=== PATIENT | female | born 1975 | race African-American/Black ===

== ENCOUNTER 2020-01-26 20:19 | Outpatient (CLI) | payer OTHER, SELFPAY ==
--- NOTE | ~2020-01-26 | MR_ITS ---
EXAMINATION: MR knee RT wo con DATE: 01/26/2020 21:06 INDICATION: Right knee pain. TECHNIQUE: Magnetic resonance imaging (MRI) of the right knee was performed without intravenous contr ast. Sequences included axial PD-weighted FS FSE, coronal PD-weighted FSE and PD-weighted FS FSE, sag ittal PD-weighted FSE, and sagittal T2-weighted FS FSE. COMPARISON: Right knee radiograph 01/19/2020 FINDINGS: Medial compartment: There is a complex tear of medial meniscus at the junction of the body and posterior horn. There is c artilage surface regularity of tibial condyle and femoral condyle. There is mild subchondral edema-li ke marrow signal intensity of femoral condyle and tibial condyle medially. There are tiny osteophytes . Lateral compartment: There is an undersurface horizontal tear of body and posterior horn of lateral meniscus. There is sha llow partial-thickness cartilage loss of femoral condyle posteriorly with mild subchondral edema-like signal intensity. Trochlear cartilage is normal. There are tiny osteophytes. Patellofemoral compartment: There is deep partial thickness cartilage loss of patellar medial and lateral facets with mild subcho ndral edema-like marrow signal intensity at the medial facet. There is deep partial thickness cartila ge loss of central and medial trochlea with mild subchondral edema-like marrow signal intensity. Ligaments and tendons: The anterior and posterior cruciate ligaments are normal. There is edema around the medial collateral ligament, consistent with mild sprain (grade 1). Lateral collateral ligament complex is normal. Ther e is mild patellar tendinopathy. Fluid: There is a small knee joint effusion. There is a small Montesinos's cyst. There is edema in Hoffa's fat pa d superolaterally, which may be seen with impingement. IMPRESSION: 1. Moderate chondrosis of patellofemoral compartment and mild chondrosis of medial and lateral compar tments. 2. Tears of medial and lateral menisci. 3. Small knee joint effusion. 4. Small Montesinos's cyst. 5. Grade 1 sprain of medial collateral ligament. Reviewed, dictated and finalized at location A. IMPRESSION: 1. Moderate chondrosis of patellofemoral compartment and mild chondrosis of med ial and lateral compartments. 2. Tears of medial and lateral menisci. 3. Small knee joint effusion. 4. Small Montesinos's cyst. 5. Grade 1 sprain of medial collateral ligament.
== END 2020-01-26 20:20 | disposition home or self-care (01) ==
PROVIDERS: PCP Family Medicine Adolescent Medicine; Visit Provider Orthopaedic Surgery
DX: M25.561 Pain in right knee (principal); M22.2X1 Patellofemoral disorders, right knee; S83.241A Other tear of medial meniscus, current injury, right knee, initial encounter; S83.281A Other tear of lateral meniscus, current injury, right knee, initial encounter; M25.461 Effusion, right knee; M71.21 Synovial cyst of popliteal space [Baker], right knee; S83.411A Sprain of medial collateral ligament of right knee, initial encounter
CPT/HCPCS: 73721

== ENCOUNTER 2020-02-28 09:05 | Outpatient (CLI) | payer OTHER, SELFPAY ==
--- NOTE | 2020-02-28 09:07 | ECG_ITS ---
Measurements Intervals [place] Rate: 54 P: 28 NM: 178 QRS: -5 QRSD: 92 T: 4 QT: 452 QTc: 429 Interpretive Statements SINUS BRADYCARDIA DELAYED PRECORDIAL R/S TRANSITION BORDERLINE T WAVE ABNORMALITY- INFERIOR LEADS BORDERLINE ECG Electronically Signed On 02-28-2020 9:22:11 CDT by Jesus Calixto D.O.
[2020-02-28 09:37] LABS: Blood Urea Nitrogen 12 mg/dL (7-17); Carbon Dioxide 28 mmol/L (22-30); Chloride 100 mmol/L (98-107); Estimated Glomerular Filt Rate > 60; Glucose 147 mg/dL (65-105); Potassium 4.3 mmol/L (3.4-5.0); Sodium 136 mmol/L (137-145)
== END 2020-02-28 09:06 | disposition home or self-care (01) ==
LOC: ANHSURGERY 09:07
PROVIDERS: Anesthesiology; PCP Family Medicine Adolescent Medicine; Visit Provider Orthopaedic Surgery
DX: E11.9 Type 2 diabetes mellitus without complications (principal)
CPT/HCPCS: 36415; 80048; 93005

== ENCOUNTER 2020-03-07 01:08 | Outpatient (CLI) | payer OTHER, SELFPAY ==
[2020-03-07 18:39] LABS: SARS-CoV-2 RNA PCR Negative
== END 2020-03-07 01:09 | disposition home or self-care (01) ==
LOC: ANHCOVIDDT 01:08
PROVIDERS: PCP Family Medicine Adolescent Medicine; Visit Provider Orthopaedic Surgery
DX: Z01.812 Encounter for preprocedural laboratory examination (principal); Z11.59 Encounter for screening for other viral diseases
CPT/HCPCS: 87635; C9803; U0003

== ENCOUNTER 2020-03-09 02:09 | Day surgery (SDC) | payer OTHER, SELFPAY ==
[2020-02-23 15:14] VITALS: BMI 34.2
--- NOTE | 2020-02-27 12:55 | PM.IMHP ---
H&P: HPI History of Present Illness Chief complaint: Right Knee Medial Meniscus Tear, Right Knee La Men Narrative: Trish Carter is a 44 year old female with right Knee Pain. Pt. is having Rt knee pain with swelling. Pt. stated the knee has been causing her pain for the past 9months, no injury to the knee. Involved knee: right Onset: gradual Location of pain: medial (posterior aspect of the knee cap ) Pain scale (0-10): 8 Character: stabbing, radiating, throbbing, dull ache and shooting Timing of pain: intermittent Exacerbated by: weight bearing, stairs, prolonged activity and other (pain more increased at HS ) Relieved by: brace, elevation, ice, rest, NSAIDs (naproxen ) and other (diclofenac gel) Associated symptoms: Reports swelling, popping and stiffness; Denies fever(s), erythema or warmth History of occupational/recreational activity with repetitive motion: No History of prior knee injury: No Review of Systems Review of Systems: All systems reviewed & are unremarkable except as noted in HPI and below Constitutional: Constitutional: Denies headache(s) and Denies weakness Eyes: Eyes: Denies blurry vision, Denies change in vision and Denies loss of vision ENT: Denies dizziness, Denies dry mouth, Denies headache(s) and Denies nasal congestion Cardiovascular: Cardiovascular: Denies chest pain, Denies syncope, Denies leg edema and Denies dyspnea on exertion Respiratory: Respiratory: Denies cough and Denies dyspnea on exertion Gastrointestinal: Gastrointestinal: Denies abdominal pain, Denies constipation and Denies diarrhea Genitourinary: Genitourinary: Denies urinary frequency Musculoskeletal: Musculoskeletal: Reports as per HPI and Denies numbness Integumentary/Breasts: Skin/Breast: Reports system reviewed and no additional complaints, except as docu Neurologic: Denies dizziness, Denies syncope, Denies headache(s), Denies loss of vision, Denies numbness and Denies weakness Psychiatric: Psychiatric: Reports no additional psychiatric complaints Endocrine: Endocrine: Reports no additional endocrine complaints Hematologic/Lymphatic: Hematologic/Lymphatic: Reports no additional hematologic/lymphatic complaints [facility] Past Medical History Medical History (Updated 02/06/20 @ 16:09 by ELTON Ireland) Arthritis Chondromalacia, right knee Diabetes Lateral meniscus tear Medial meniscus tear Pes anserine bursitis Right knee pain Social History Social History Smoking status: Never smoker Alcohol intake: current Drinks per week: 1 Substance use: never Substance use type: does not use 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[employer] Gender identity (if verbalized by the patient): Female Spiritual care concerns: No Meds Home Medications and Allergies Home Medications Medication Instructions Recorded Confirmed Type diclofenac sodium 2 pump TOPICAL BID #112 gm 01/19/20 02/23/20 Rx meloxicam 15 mg tablet 15 mg PO DAILY 02/06/20 02/23/20 History chlorhexidine gluconate 4 % 1 applic TOPICAL ONCE #237 ml 02/07/20 02/23/20 Rx topical liquid atorvastatin [Lipitor] 20 mg PO DAILY 02/23/20 02/23/20 History canagliflozin [Invokana] 100 mg PO DAILY 02/23/20 02/23/20 History docusate sodium [Colace] 100 mg PO BID 02/23/20 02/23/20 History metformin 1,000 mg PO BID 02/23/20 02/23/20 History omeprazole magnesium [Prilosec OTC] 40 mg PO BID 02/23/20 02/23/20 History sennosides [senna] 8.6 mg PO BID 02/23/20 02/23/20 History Allergies Allergy/AdvReac Type Severity Reaction Status Date / Time No Known Allergies Allergy Unknown Verified 02/23/20 15:14 Exam Narrative: Exam Narrative: Const Reports as per HPI, Denies chills, Denies fatigue, Denies headache(s), Denies night sweats, Denies weakness, Denies weight gain and Denies weight loss Eyes Reports no additional complaints and Denies eye discharge ENT Reports
--- NOTE | 2020-03-08 17:12 | P.PNAN_ITS ---
Mari - Joni Pre Procedure Procedure: Operation Date: 03/09/20 07:30 Proposed Procedures p Right Knee Arthroscopy, Proceed As Indicated - Bharat De Oliveira MD Date/Time: 03/08/20 17:12 Pre Op Diagnosis: Right Knee Medial Meniscus Tear, Right Knee La Men Patient Data Age: 44 Gender: F Height: 5 ft 8 in Weight: 102 kg Allergies Allergy/AdvReac Type Severity Reaction Status Date / Time No Known Allergies Allergy Unknown Verified 02/23/20 15:14 Home Medications Medication Instructions Recorded Confirmed Type diclofenac sodium 2 pump TOPICAL BID #112 gm 01/19/20 02/23/20 Rx meloxicam 15 mg tablet 15 mg PO DAILY 02/06/20 02/23/20 History chlorhexidine gluconate 4 % 1 applic TOPICAL ONCE #237 ml 02/07/20 02/23/20 Rx topical liquid atorvastatin [Lipitor] 20 mg PO DAILY 02/23/20 02/23/20 History canagliflozin [Invokana] 100 mg PO DAILY 02/23/20 02/23/20 History docusate sodium [Colace] 100 mg PO BID 02/23/20 02/23/20 History metformin 1,000 mg PO BID 02/23/20 02/23/20 History omeprazole magnesium [Prilosec OTC] 40 mg PO BID 02/23/20 02/23/20 History sennosides [senna] 8.6 mg PO BID 02/23/20 02/23/20 History Patient hx anesthesia problems: none Family hx anesthesia problems: none PMFSH Past Medical History Medical History (Updated 03/08/20 @ 17:13 by Mitul Morillo CRNA) Arthritis Chondromalacia, right knee Diabetes GERD (gastroesophageal reflux disease) Lateral meniscus tear Medial meniscus tear Pes anserine bursitis Right knee pain Family History Family History Unknown Diabetes mellitus Arthritis Social History Social History Smoking status: Never smoker Alcohol intake: current Drinks per week: 1 Substance use: never Substance use type: does not use 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
[2020-03-09] VITALS (9 sets, daily range): BP systolic 117–155; BP diastolic 72–86; PULSE 51–73; RESP 11–18; TEMP 36.2–36.7; O2SAT 99–100
[2020-03-09] MEDS: CELECOXIB 200 MG CAPSULE PO (06:20)
[2020-03-09] MEDS: LACTATED RINGERS 1,000 ML 30 ML IV CONT (06:30)
[2020-03-09 06:38] LABS: Glucose Point of Care 138 (65-105)
--- NOTE | 2020-03-09 07:02 | P.PNAN_ITS ---
Anes - Initial Pre Proc Eval Procedure: Operation Date: 03/09/20 07:30 Proposed Procedures p Right Knee Arthroscopy, Proceed As Indicated - Bharat De Oliveira MD Date/Time: 03/09/20 07:02 Surgeon: Bharat De Oliveira MD Pre Op Diagnosis: Right Knee Medial Meniscus Tear, Right Knee La Men Patient Data Age: 44 Gender: F Height: 5 ft 8 in Weight: 102 kg Allergies Allergy/AdvReac Type Severity Reaction Status Date / Time No Known Allergies Allergy Unknown Verified 03/09/20 07:01 Home Medications Medication Instructions Recorded Confirmed Type diclofenac sodium 2 pump TOPICAL BID #112 gm 01/19/20 02/23/20 Rx meloxicam 15 mg tablet 15 mg PO DAILY 02/06/20 02/23/20 History chlorhexidine gluconate 4 % 1 applic TOPICAL ONCE #237 ml 02/07/20 02/23/20 Rx topical liquid atorvastatin [Lipitor] 20 mg PO DAILY 02/23/20 02/23/20 History canagliflozin [Invokana] 100 mg PO DAILY 02/23/20 02/23/20 History docusate sodium [Colace] 100 mg PO BID 02/23/20 02/23/20 History metformin 1,000 mg PO BID 02/23/20 02/23/20 History omeprazole magnesium [Prilosec OTC] 40 mg PO BID 02/23/20 02/23/20 History sennosides [senna] 8.6 mg PO BID 02/23/20 02/23/20 History Laboratory Tests 03/09/20 06:36 POC Capillary Glucose 138 mg/dl H mg/dl (65-105) Patient hx anesthesia problems: none Family hx anesthesia problems: none PMFSH Past Medical History Medical History Arthritis Chondromalacia, right knee Diabetes GERD (gastroesophageal reflux disease) Lateral meniscus tear Medial meniscus tear Pes anserine bursitis Right knee pain Family History Family History Unknown Diabetes mellitus Arthritis Social History Social History Smoking status: Never smoker Alcohol intake: current Drinks per week: 1 Substance use: never Substance use type: does not use Living arrangements: with family 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[employer] Gender identity (if verbalized by the patient): Female Spiritual care concerns: No Anes - Eval Final PreProcedure Day of Procedure 03/09/20 07:02 Patient weight: obese Heart: regular rate and rhythm Lungs: clear to auscultation Airway: Mallampati scale class II Neurological: alert and oriented Last oral intake: >/= 8 hours ASA classification: III Emergent: no Anesthetic plan: proceed Anesthesia type and monitoring: general LMA and standard monitoring Informed Consent: The patient's anesthetic plan and its attendant risks and benefits were discussed with the patient/family/POA. Questions were solicited and answers provided to the satisfaction of the patient/family/POA.
--- NOTE | 2020-03-09 07:14 | WPDHPUPDATE1 ---
History and Physical Update Update Date/Time: 03/09/20 07:14 History and Physical has been reviewed, including an updated exam of the patient. There are NO changes in the patient's condition. Risks, benefits, and alternatives have been discussed and questions answered. Patient agrees to proceed with procedure.
[2020-03-09] MEDS: ceFAZolin 2 GM/D5W 50 ML 2 GM/50 ML BAG IVPB (07:22)
--- NOTE | 2020-03-09 08:29 | PM.OP ---
Procedure Note - Brief Procedure Note - Brief Date of procedure: 03/09/20 Pre-op diagnosis: Right Knee Medial Meniscus Tear, Right Knee La Men Post-op diagnosis: same Procedure performed: R KNEE SCOPE Anesthesia: GLMA Surgeon: Bharat De Oliveira MD Estimated blood loss (mL): 5 Complications: No immediate complications Condition: stable Disposition: PACU
[2020-03-09 09:04] LABS: Glucose Point of Care 127 (65-105)
--- NOTE | 2020-03-09 09:21 | OP_ITS ---
DATE OF PROCEDURE: 03/09/2020 PREOPERATIVE DIAGNOSIS: Right knee medial meniscus tear and lateral meniscus tear. POSTOPERATIVE DIAGNOSIS: Right knee medial meniscus tear and lateral meniscus tear. PROCEDURE: Right knee arthroscopy with partial medial meniscectomy, partial lateral meniscectomy, and major synovectomy. ANESTHESIA: General. COMPLICATIONS: None. INDICATIONS: This is a 44-year-old female who came in the office complaining of right knee pain and effusion. She was diagnosed with a medial meniscus tear and lateral meniscal tear. She was indicated for right knee arthroscopy. DESCRIPTION OF PROCEDURE: The patient was taken to the operating room in stable condition, placed in the supine position. General anesthesia was induced and then, the right lower extremity was prepped and draped sterilely from the toes to the thigh. The superomedial portal was used for an outflow cannula and the inferolateral portal was used for the camera. The camera was introduced. There was grade 3 chondromalacia to the patella. There was minimal chondromalacia into the trochlea. There was extensive synovitis in Hoffa synovium and in the medial and superior compartments. The medial compartment was entered, there was a complex tear of the medial meniscus. This was resected with a biter and shaver until there was a smooth base. There was minimal chondromalacia to the rest of the medial compartment. The ACL was identified and it was intact. The lateral compartment was entered, there was a tear to the anterior horn of the lateral meniscus. This was resected with a shaver until it was smoothed down to a nice stable base. There was also a significant amount of synovitis. A synovectomy was performed in this region as well and there was no impingement on the lateral compartment. Next, the patella underwent chondroplasty. Hoffa synovium underwent synovectomy and did the superomedial compartment as well. The instruments were removed after thorough irrigation of the knee joint. Wounds were irrigated thoroughly. A 4-0 nylon was used to approximate the skin edges. Sterile dressing was applied and the patient was extubated. Carlos I MT: Dennise
== END 2020-03-09 11:06 | disposition home health service (06) ==
PROVIDERS: PCP Family Medicine Adolescent Medicine; Visit Provider Orthopaedic Surgery
PROC: (CPT 29870; principal; 2020-03-09 07:30)
DX: M23.203 Derangement of unspecified medial meniscus due to old tear or injury, right knee (principal); M23.241 Derangement of anterior horn of lateral meniscus due to old tear or injury, right knee; M22.41 Chondromalacia patellae, right knee; M65.9 Synovitis and tenosynovitis, unspecified; E11.9 Type 2 diabetes mellitus without complications; Z79.84 Long term (current) use of oral hypoglycemic drugs; K21.9 Gastro-esophageal reflux disease without esophagitis; E66.9 Obesity, unspecified; Z68.34 Body mass index [BMI] 34.0-34.9, adult; Z79.899 Other long term (current) drug therapy
CPT/HCPCS: 29880; A9270; J0690; J1100; J2250; J2405; J2704; J3010; J7120

== ENCOUNTER 2021-09-17 12:50 | Outpatient (CLI) | payer OTHER, SELFPAY ==
--- NOTE | ~2021-09-17 | US_ITS ---
EXAMINATION: US pelvic complete w TV EXAM DATE: 09/17/2021 13:43 INDICATION: Vaginal bleeding. Prolonged periods. TECHNIQUE: Pelvic transabdominal and transvaginal sonogram was performed. There are multiple graysca le and Doppler images available for interpretation. There is no prior study for comparison. FINDINGS: Uterus measures 7.5 x 4.2 x 5.3 cm, is retroverted and with probable small left fibroid me asuring 1.5 cm. Endometrial stripe measures 6 mm, within normal limits. There is small free pelvic fluid. Right adnexa: The ovary measures 2.1 x 1.2 x 0.9 cm and is morphologically normal. Ovarian vascular f low confirmed. Left adnexa: The ovary measures 2.3 x 1.2 x 1.7 cm and is morphologically normal. Ovarian vascular fl ow confirmed. IMPRESSION: Probable small fibroid. Reviewed, dictated and finalized at location G. OBIOLOGY LAB ANALYST IMPRESSION: Probable small fibroid.
== END 2021-09-17 12:51 | disposition home or self-care (01) ==
LOC: ANHIMG 12:58
PROVIDERS: PCP Family Medicine Adolescent Medicine; Visit Provider Obstetrics & Gynecology
DX: N93.8 Other specified abnormal uterine and vaginal bleeding (principal)
CPT/HCPCS: 76830; 76856

== ENCOUNTER 2021-10-24 08:00 | Outpatient (CLI) | payer OTHER, SELFPAY ==
[2021-10-24 08:30] LABS: Anion Gap 5 mmol/L (8-16); Blood Urea Nitrogen 12 mg/dL (7-17); Calcium 8.7 mg/dL (8.4-10.2); Carbon Dioxide 28 mmol/L (22-30); Chloride 104 mmol/L (98-107); Estimated Glomerular Filt Rate > 60; Glucose 123 mg/dL (65-110); Potassium 3.9 mmol/L (3.4-5.0); Sodium 137 mmol/L (137-145)
== END 2021-10-24 08:01 | disposition home or self-care (01) ==
LOC: ANHSURGERY 08:03
PROVIDERS: Anesthesiology; PCP Family Medicine Adolescent Medicine; Visit Provider Obstetrics & Gynecology Gynecology
DX: Z01.818 Encounter for other preprocedural examination (principal); E11.9 Type 2 diabetes mellitus without complications
CPT/HCPCS: 36415; 80048

== ENCOUNTER 2021-10-28 00:29 | Day surgery (SDC) | payer OTHER, SELFPAY ==
[2021-10-21 15:16] VITALS: BMI 33.4
--- NOTE | 2021-10-21 15:26 | PC.NURSE ---
Report to the Outpatient Waiting Room, entrance under the green pavilion located off [facility], at time _0830 on date ___10/28/21____. OR Time: __1030 . - You and your visitor will be asked a series of questions to screen for COVID 19 for your protection. - A mask is required within the hospital. Preoperative COVID Testing Requirements: No COVID Test needed if: (proof is required) - Patient has received COVID Vaccine at least 14 days prior to procedure date or - Patient has positive COVID test result within last 90 days of surgery date. PT TO EMAIL COPY OF CARD AND OF POSITIVE TEST Patients may have clear liquids (water, carbonated beverages, clear teas, apple juice) until 3 hours prior to surgery with a maximum of 20 ounces. No food from midnight until time of surgery. Take the following medications with a SIP of water the morning of surgery: N/A Medications to discontinue per physician N/A Date to take last dose Please no make-up, nail welsh, hairspray, perfume, deodorant, or body powder the day of surgery. No jewelry (including any body piercings) or valuables the day of surgery, leave them at home. Please take a shower or bath the night before, or the morning of, surgery with an antibacterial soap. Wear comfortable, loose fitting clothing. - Jewelry must be removed prior to entering the operating room. Rings and piercings that are not removed may be cut off. - The hospital will not accept responsibility for valuables. - Please leave all valuables, including medications, at home the day of surgery. If you are going home after surgery, a licensed local bulk driver must drive you home. - NO public transportation without another adult. - We recommend that an adult stay with you for 24 hours following discharge. - We also recommend that you do not drive, make important decision, drink alcoholic beverages, or take any drugs that were not prescribed by your health care provider for at least 24 hours after your discharge time. One visitor will be allowed to accompany the patient into the hospital. Patients visitor will be instructed to remain with patient at all times or leave the building. We will allow the visitor to come back to the postoperative area when patient is ready. Visitor must wear a mask. Follow any additional instructions given to you from your surgeon. Telephone instructions given to ___patient and asked if any additional questions and then verbalized understanding. Patient advised to call surgeon office or pre surgery nurse liaison [phone] if any additional questions. (EUFEMIA)
--- NOTE | 2021-10-28 07:53 | WPDHPUPDATE1 ---
History and Physical Update Update Date/Time: 10/28/21 07:53 History and Physical has been reviewed, including an updated exam of the patient. There are NO changes in the patient's condition. Risks, benefits, and alternatives have been discussed and questions answered. Patient agrees to proceed with procedure.
--- NOTE | 2021-10-28 07:53 | PM.HPGS ---
History of Present Illness History of Present Illness Consent: Risks, benefits, and alternatives have been discussed and questions answered. Patient agrees to proceed with procedure. Chief complaint: menorrhaghia Narrative: Trsih Carter is a 46 year old female with a radically timed cycles. Cycles are lasting for 2 weeks. Bleeding so far has not been heavy. It was recommended to proceed with D&C hysteroscopy. Pelvic ultrasound was normal except for a small fibroid. Risks of infection, bleeding perforation, and fluid imbalance were reviewed. Possible pathology was also discussed. Patient voices understanding and agrees to proceed. Review of Systems Review of Systems: not repeated day of surgery; patient states no changes in status [facility] Past Medical History Medical History (Updated 10/28/21 @ 07:57 by Nola Werner MD) Arthritis delivery delivered 1991,1994 Chondromalacia, right knee Diabetes Most recent hemoglobin A1c is 8.0 GERD (gastroesophageal reflux disease) Lateral meniscus tear Medial meniscus tear Pes anserine bursitis Right knee pain Family History Family History Unknown Diabetes mellitus Arthritis Social History Social History Smoking status: Never smoker Second hand tobacco smoke exposure: No Alcohol intake: current Drinks per week: 1 Alcohol use details: MIXED DRINK WEEKLY Substance use: never Substance use type: marijuana Other substance usage details: ONCE EVERY 2 MONTHS Last use: 09/30/2021 Living arrangements: alone 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[employer] Gender identity (if verbalized by the patient): Female Spiritual care concerns: No Meds Home Medications and Allergies Home Medications Medication Instructions Recorded Confirmed Type atorvastatin [Lipitor] 20 mg PO DAILY 02/23/20 10/21/21 History docusate sodium [Colace] 100 mg PO BID 02/23/20 10/21/21 History metformin 1,000 mg PO BID 02/23/20 10/21/21 History omeprazole magnesium [Prilosec OTC] 40 mg PO DAILY 02/23/20 10/21/21 History sennosides [senna] 8.6 mg PO BID 02/23/20 10/21/21 History hydrocodone-acetaminophen [[place]] 1 tablet PO Q6H PRN #60 tablet NS 03/09/20 10/21/21 Rx diclofenac sodium 2 pump TOPICAL BID #112 gm 05/08/20 10/21/21 Rx meloxicam 15 mg tablet 15 mg PO DAILY #30 tablet 08/29/21 10/21/21 Rx empagliflozin [Jardiance] 25 mg PO DAILY 10/21/21 10/21/21 History tobramycin 0.3 %-dexamethasone 0.1 1 drp EACH EYE QID #5 ml 10/23/21 Rx % eye drops,suspension Allergies Allergy/AdvReac Type Severity Reaction Status Date / Time No Known Allergies Allergy Unknown Verified 10/21/21 15:10 Exam Const: General: healthy appearing and alert Orientation/consciousness: patient oriented x3 GI: GI Palp: Yes Soft to palpation, No Tenderness to palpation present (GI) and No Palpable mass present : External Female Exam: normal external appearance Speculum Exam - Vagina: normal appearance of the vagina and normal vaginal discharge Speculum Exam - Cervix: normal appearance of the cervix Bimanual exam- vagina & uterus: uterine size normal and consistency normal Bimanual Exam- Adnexa, other: normal adnexae and No adnexal tenderness Neuro: General: patient oriented x3 Assessment and Plan Assessment and plan (1) Menorrhagia: Code(s): N92.0 - Excessive and frequent menstruation with regular cycle Status: Acute Assessment and Plan: Plan is to proceed with D&C hysteroscopy
[2021-10-28 08:37] VITALS: BP 149/79; PULSE 57; RESP 16; TEMP 36.3; O2SAT 100
--- NOTE | 2021-10-28 09:07 | WPDANESEPPF ---
Anes - Initial Pre Proc Eval Procedure: Operation Date: 10/28/21 10:30 Proposed Procedures p Hysteroscopy, Dilation and Curettage - Nola Werner MD Date/Time: 10/28/21 09:07 Surgeon: Nola Werner MD Pre Op Diagnosis: menorrhaghia Patient Data Age: 46 Gender: F Height: 1.73 m Weight: 95.8 kg Last Vital Signs Temp 36.3 C L 10/28/21 08:37 Pulse 57 L 10/28/21 08:37 Resp 16 10/28/21 08:37 BP 149/79 H 10/28/21 08:37 Pulse Ox 100 10/28/21 08:37 Allergies Allergy/AdvReac Type Severity Reaction Status Date / Time No Known Allergies Allergy Unknown Verified 10/28/21 08:49 Home Medications Medication Instructions Recorded Confirmed Type atorvastatin [Lipitor] 20 mg PO DAILY 02/23/20 10/21/21 History docusate sodium [Colace] 100 mg PO BID 02/23/20 10/21/21 History metformin 1,000 mg PO BID 02/23/20 10/21/21 History omeprazole magnesium [Prilosec OTC] 40 mg PO DAILY 02/23/20 10/21/21 History sennosides [senna] 8.6 mg PO BID 02/23/20 10/21/21 History hydrocodone-acetaminophen [Clarkia] 1 tablet PO Q6H PRN #60 tablet NS 03/09/20 10/21/21 Rx diclofenac sodium 2 pump TOPICAL BID #112 gm 05/08/20 10/21/21 Rx meloxicam 15 mg tablet 15 mg PO DAILY #30 tablet 08/29/21 10/21/21 Rx empagliflozin [Jardiance] 25 mg PO DAILY 10/21/21 10/21/21 History tobramycin 0.3 %-dexamethasone 0.1 1 drp EACH EYE QID #5 ml 10/23/21 Rx % eye drops,suspension Patient hx anesthesia problems: none Family hx anesthesia problems: none Results Review: All pre-operative results and documents have been reviewed as part of the pre-operative evaluation. [facility] Past Medical History Medical History (Updated 10/28/21 @ 07:57 by Nola Werner MD) Arthritis delivery delivered 1991,1994 Chondromalacia, right knee Diabetes Most recent hemoglobin A1c is 8.0 GERD (gastroesophageal reflux disease) Lateral meniscus tear Medial meniscus tear Pes anserine bursitis Right knee pain Family History Family History Unknown Diabetes mellitus Arthritis Social History Social History Smoking status: Never smoker Second hand tobacco smoke exposure: No Alcohol intake: current Drinks per week: 1 Alcohol use details: MIXED DRINK WEEKLY Substance use: never Substance use type: marijuana Other substance usage details: ONCE EVERY 2 MONTHS Last use: 09/30/2021 Living arrangements: alone 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[employer] Gender identity (if verbalized by the patient): Female Spiritual care concerns: No Anes - Eval Final PreProcedure Day of Procedure 10/28/21 09:07 Patient weight: obese Heart: regular rate and rhythm Lungs: clear to auscultation and normal air movement Airway: Mallampati scale class II Neurological: alert and oriented Last oral intake: >/= 8 hours ASA classification: III Emergent: no Anesthetic plan: proceed Anesthesia type and monitoring: general GIVS and standard monitoring Results Review: All pre-operative results and documents have been reviewed as part of the pre-operative evaluation. Informed Consent: The patient's anesthetic plan and its attendant risks and benefits were discussed with the patient/family/POA. Questions were solicited and answers provided to the satisfaction of the patient/family/POA.
[2021-10-28] MEDS: LACTATED RINGERS 1,000 ML 30 ML IV CONT (09:15)
[2021-10-28] MEDS: ACETAMINOPHEN 500 MG TABLET 1000 MG PO (09:17)
[2021-10-28 09:38] LABS: Glucose Point of Care 122 mg/dl (65-105)
--- NOTE | 2021-10-28 10:36 | P.OP_ITS ---
Procedure Note - Detailed Date of Procedure 10/28/21 Pre-op Diagnosis menorrhaghia Post-op Diagnosis Same Procedure Performed D&C hysteroscopy Surgeon Nola Werner MD Anesthesia MAC and Local Findings Internal os is stenotic. Uterus sounds to 6cm. Endometrium appears grossly normal. Description of Procedure The patient was taken to the operating room and placed under anesthesia in the dorsal lithotomy position. She was prepped and draped in usual sterile fashion in the dorsal lithotomy position. [place] speculum was placed in the vagina and the cervix is grasped on the anterior lip with a tenaculum. The cervix is injected with 1% lidocaine in each quadrant. The uterus was attempted to be sounded but there is internal stenosis at 2cm. The os Finders are used to open the internal os. Cervix is then sounded to 6cm. The cervix is serially dilated with Hegar. The diagnostic hysteroscope was placed with no abnormalities noted. The hysteroscope was then removed. The medium sharp curette was used to curette the endometrium until a good uterine cry was noted in all areas. Minimal material was obtained consistent with the visual appearance. All instruments are removed. Sponge, needle, and instrument counts are correct per the OR staff. Estimated Blood Loss 5 Drains No Packing No Pathology Yes (Endometrial curettings) Complications No immediate complications Condition Stable Disposition PACU
[2021-10-28 10:37] VITALS: BP 145/76; PULSE 73; RESP 16; O2SAT 99
[2021-10-28 11:07] VITALS: BP 136/81; PULSE 65; RESP 16; O2SAT 99
[2021-10-28 11:30] VITALS: BP 140/89; PULSE 58; RESP 16; O2SAT 99
[2021-10-28 11:48] LABS: Glucose Point of Care 85 mg/dl (65-105)
== END 2021-10-28 11:40 | disposition home or self-care (01) ==
PROVIDERS: PCP Family Medicine Adolescent Medicine; Visit Provider Obstetrics & Gynecology Gynecology
PROC: 0U5B8ZZ Destruction of Endometrium, Via Natural or Artificial Opening Endoscopic (ICD-10-PCS; CPT 58563; principal; 2021-10-28 10:30)
DX: N92.0 Excessive and frequent menstruation with regular cycle (principal); N85.8 Other specified noninflammatory disorders of uterus; E11.9 Type 2 diabetes mellitus without complications; K21.9 Gastro-esophageal reflux disease without esophagitis; F12.90 Cannabis use, unspecified, uncomplicated; Z79.84 Long term (current) use of oral hypoglycemic drugs
CPT/HCPCS: 58558; 36415; 80048; 82948; 88305; A9270; J2250; J2704; J3010; J7030; J7120

== ENCOUNTER → 2022-08-07 10:02 | Outpatient (CLI) | payer OTHER, SELFPAY ==
--- NOTE | ~2022-08-07 | MR_ITS ---
MRI of the left knee Clinical history: Pain Technique: Coronal proton density and proton density-weighted images, sagittal proton-density and T2 fat-sat images, and axial proton-density fat-saturated images were acquired. Findings: Anterior and posterior cruciate ligaments are intact. Medial collateral ligament and the la teral collateral ligament complex are intact. Popliteus tendon is intact. There is complex tearing of the posterior horn and body of the medial meniscus. No lateral meniscal t ear identified. There is mild chondral thinning in the medial compartment. Lateral compartment cartilage is relativel y well preserved. There is patchy mild chondromalacia patella. Moderate chondromalacia at the central femoral trochlea extending to the medial aspect is present Extensor mechanism is intact. No significant joint effusion. No Montesinos's cyst.. Impression: Complex tearing of the posterior horn and body of medial meniscus. Moderate femoral trochlear chondromalacia, as detailed above. Mild chondromalacia patella and mild co ntemplation the medial compartment. Reviewed, dictated and finalized at location . [employer] Impression: Complex tearing of the posterior horn and body of medial meniscus. Moderate femoral trochlear chondromalacia, as detailed above. Mild chondromalac ia patella and mild contemplation the medial compartment.
== END ==
PROVIDERS: PCP Nurse Practitioner Family; Visit Provider Nurse Practitioner Family
DX: M25.562 Pain in left knee (principal); S83.232A Complex tear of medial meniscus, current injury, left knee, initial encounter; M94.262 Chondromalacia, left knee
CPT/HCPCS: 73721

== ENCOUNTER 2022-09-20 07:26 | Outpatient (CLI) | payer OTHER, SELFPAY ==
--- NOTE | 2022-09-20 07:56 | ECG_ITS ---
Measurements Intervals [place] Rate: 58 P: 29 MT: 167 QRS: 10 QRSD: 93 T: 28 QT: 413 QTc: 407 Interpretive Statements SINUS BRADYCARDIA NONSPECIFIC ST AND T-WAVE ABNORMALITY ABNORMAL ECG COMPARED TO ECG 02/28/2020 09:38:13 NO SIGNIFICANT CHANGES Electronically Signed On 09-20-2022 12:49:00 DROP WIRER by Stephen Constantino M.D.
[2022-09-20 08:18] LABS: Anion Gap 7 mmol/L (8-16); Blood Urea Nitrogen 19 mg/dL (7-17); Calcium 9.4 mg/dL (8.4-10.2); Carbon Dioxide 28 mmol/L (22-30); Chloride 104 mmol/L (98-107); Estimated Glomerular Filt Rate > 60; Glucose 124 mg/dL (65-110); Potassium 3.8 mmol/L (3.4-5.0); Sodium 139 mmol/L (137-145)
== END 2022-09-20 07:27 | disposition home or self-care (01) ==
LOC: ANHLAB 07:28
PROVIDERS: PCP Family Medicine Adolescent Medicine; Visit Provider Anesthesiology
DX: E11.9 Type 2 diabetes mellitus without complications (principal); Z01.818 Encounter for other preprocedural examination; R94.31 Abnormal electrocardiogram [ECG] [EKG]
CPT/HCPCS: 36415; 80048; 93005

== ENCOUNTER 2022-09-26 00:06 | Day surgery (SDC) | payer OTHER, SELFPAY ==
[2022-09-16 12:34] VITALS: BMI 30.4
--- NOTE | 2022-09-16 12:38 | PC.NURSE ---
Report to the Outpatient Waiting Room, entrance under the green pavilion located off [facility], at time 6:00 on date 09/26/22. Planned Procedure Time: 7:30. Time changes happen often and if your time is changed the preop area will call you the afternoon before. - You and your visitor will be asked to self-screen and do not enter if you have any COVID symptoms. - Only one visitor is requested with a max of two and NO children visitors are allowed at this time. - The patient visitor may be requested to leave or wait in car when not with patient due to distancing restrictions. - A mask is optional within the hospital at this time. Patients may have clear liquids (water, carbonated beverages, clear teas, apple juice) until 3 hours prior to surgery (4:30) with a maximum of 20 ounces. - No food from midnight until time of surgery Take the following medications with a SIP of water the morning of surgery: NONE DO NOT STOP ANY OF YOUR OTHER PRESCRIPTION MEDICATIONS PRIOR TO SURGERY EXCEPT THE FOLLOWING Medications to discontinue per physician: MELOXICAM Date to take last dose: PER DR. FUENTES Please no make-up, nail tristanian, hairspray, perfume, deodorant, or body powder the day of surgery. No jewelry (including any body piercings) or valuables the day of surgery, leave them at home. Please take a shower or bath the night before, or the morning of, surgery with an antibacterial soap. Wear comfortable, loose fitting clothing. - Jewelry must be removed prior to entering the operating room. Rings and piercings that are not removed may be cut off. - The hospital will not accept responsibility for valuables. - Please leave all valuables, including medications, at home the day of surgery. If you are going home after surgery, a licensed certified driver examiner must drive you home. - NO public transportation without another adult if you receive anesthesia. - We recommend that an adult stay with you for 24 hours following discharge. - We also recommend that you do not drive, make important decision, drink alcoholic beverages, or take any drugs that were not prescribed by your health care provider for at least 24 hours after your discharge time. Follow any additional instructions given to you from your surgeon. If you or anyone in your household have experienced Covid symptoms in the past week, please notify your surgeon or the nurse liaison at the phone number below for possible testing. Telephone instructions given to TRINIDAD RIBEIRO and asked if any additional questions and then verbalized understanding. Patient advised to call surgeon office or pre surgery nurse liaison [phone] if any additional questions.
[2022-09-26] VITALS (9 sets, daily range): BP systolic 133–152; BP diastolic 72–92; PULSE 54–71; RESP 12–17; TEMP 36.1–37.2; O2SAT 96–100
[2022-09-26] MEDS: CELECOXIB 200 MG CAPSULE PO (06:13)
[2022-09-26] MEDS: ACETAMINOPHEN 500 MG TABLET 1000 MG PO (06:14)
--- NOTE | 2022-09-26 06:38 | WPDANESEPPF ---
Anes - Initial Pre Proc Eval Procedure: Operation Date: 09/26/22 07:30 Proposed Procedures p Left Knee Arthroscopy - Bharat De Oliveira MD Date/Time: 09/26/22 06:38 Surgeon: Bharat De Oliveira MD Pre Op Diagnosis: Left Knee Medial Meniscus Tear Patient Data Age: 47 Gender: F Height: 1.73 m Weight: 92 kg Last Vital Signs Temp 36.1 C L 09/26/22 06:34 Pulse 71 09/26/22 06:34 Resp 16 09/26/22 06:34 BP 136/92 H 09/26/22 06:34 Pulse Ox 100 09/26/22 06:34 O2 Del Method Room Air 09/26/22 06:34 Allergies Allergy/AdvReac Type Severity Reaction Status Date / Time No Known Allergies Allergy Unknown Verified 09/26/22 06:12 Home Medications Medication Instructions Recorded Confirmed Type docusate sodium 100 mg capsule 100 mg PO BID 02/23/20 09/25/22 History (Colace) omeprazole magnesium 20 mg 40 mg PO DAILY 02/23/20 09/25/22 History tablet,delayed release (Prilosec OTC) sennosides 8.6 mg tablet (senna) 8.6 mg PO BID 02/23/20 09/25/22 History cetirizine 10 mg capsule (Zyrtec) 10 mg PO DAILY PRN Allergy Symptoms 02/19/22 09/25/22 History progesterone micronized 200 mg 200 mg PO QHS 02/19/22 09/25/22 History capsule sennosides 8.6 mg tablet (Skylar-elvi) 17.2 mg PO BID 02/19/22 09/25/22 History empagliflozin 25 mg tablet 25 mg PO DAILY #90 tabs 03/03/22 09/25/22 Rx (Jardiance) gabapentin 100 mg capsule 200 mg PO QHS 05/05/22 09/25/22 History (Neurontin) atorvastatin 20 mg tablet See Rx Instructions .Route 07/14/22 09/25/22 Rx .COMPLEX #30 tabs metformin 500 mg tablet,extended 1,000 mg PO BID #120 tabs 07/21/22 09/25/22 Rx release 24 hr meloxicam 15 mg tablet See Rx Instructions .Route 09/08/22 09/25/22 Rx .COMPLEX #30 tabs chlorhexidine gluconate 4 % 1 applic topical ONCE #237 mL 09/19/22 09/25/22 Rx topical liquid (Hibiclens) Patient hx anesthesia problems: none Family hx anesthesia problems: none Results Review: All pre-operative results and documents have been reviewed as part of the pre-operative evaluation. [facility] Past Medical History Medical History delivery delivered 1991,1994 Chondromalacia, right knee Diabetes Most recent hemoglobin A1c is 7.1 GERD (gastroesophageal reflux disease) Lateral meniscus tear Left knee DJD Left knee pain Medial meniscus tear Pes anserine bursitis Right knee pain Surgical History Surgical History H/O arthroscopic knee surgery H/O tubal ligation Family History Family History Unknown Diabetes mellitus Arthritis Sibling Arthritis Diabetes mellitus Heart disease Hypertension Mother Arthritis Diabetes mellitus Sibling Diabetes mellitus Hypertension Social History Social History Smoking status: Never smoker Second hand tobacco smoke exposure: No Alcohol intake: current Drinks per week: 1 Alcohol use details: 1/MONTH Other substance usage details: ONCE EVERY 2 MONTHS Last use: 09/30/2021 Living arrangements: with family Additional living arrangements comments: SON Occupation/Education: occupation 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
[2022-09-26] MEDS: LACTATED RINGERS 1,000 ML 30 ML IV CONT ×2 (06:39→08:59)
--- NOTE | 2022-09-26 07:01 | WPDHPUPDATE1 ---
History and Physical Update Update Date/Time: 09/26/22 07:01 History and Physical has been reviewed, including an updated exam of the patient. There are NO changes in the patient's condition. Risks, benefits, and alternatives have been discussed and questions answered. Patient agrees to proceed with procedure.
[2022-09-26] MEDS: ceFAZolin 2 GM/D5W 50 ML 2 GM/50 ML BAG IVPB (07:25)
[2022-09-26] MEDS: BUPivacaine HCL 0.5% PF 30 ML VIAL INFILTRATE (07:49)
[2022-09-26 08:44] LABS: Glucose Point of Care 125 mg/dl (65-105)
--- NOTE | 2022-09-26 08:44 | P.OP_ITS ---
Procedure Note - Detailed Date of Procedure 09/26/22 Pre-op Diagnosis Left Knee Medial Meniscus Tear Post-op Diagnosis Same Procedure Performed LEFT KNEE SCOPE Surgeon Bharat De Oliveira MD Anesthesia General Description of Procedure PATIENT WAS TAKEN TO THE OR. LEFT LEG WAS PREPPED AND DRAPED STERILE. TROCARS WERE PLACED IN THE USUAL FASHION. CAMERA WAS INTRODUCED. THERE WAS CHONDROMALACIA TO THE PATELLA FEMORAL JOINT. THERE WAS A LOT OF SYNOVITIS IN ALL COMPARTMENTS. THE MEDIAL COMPARTMENT SHOWED CHONDROMALACIA TO THE MEDIAL FEMORAL CONDYLE. A SHAVER WAS USED TO PREFORM A CHONDROPLASTY. THERE WAS A COMPLEX MEDIAL MENISCUS TEAR. THE TEAR WAS RESECTED WITH A BITER AND A SHAVER DOWN TO A SMOOTH BASE. ABOUT 30% OF THE MENISCUS WAS REMOVED. THE ACL WAS INTACT. THE LATERAL MENISCUS WAS NOT TORN. THE LATERAL COMPARTMENT HAD NO CHONDROMALACIA. A SYNOVECTOMY WAS PREFORMED. THE PATELLO FEMORAL JOINT U NDERWENT CHONDROPLASTY. THERE WAS GRADE 2 AND 3 CHONDROMALACIA IN PART OF THE TROCHLEA AND PART OF THE PATELLA. SYNOVECTOMY WAS PREFORMED IN THE SUPERIOR MEDIAL COMPARTMENT. THE WOUNDS WERE APPROXIMATED WITH 4.0 NYLON. STERILE DRESSING WAS APPLIED. PATIENT WAS EXTUBATED. Estimated Blood Loss 5 Complications No immediate complications Condition Stable Disposition PACU
[2022-09-26] MEDS: fentaNYL CITRATE INJ (*CRX) 100 MCG/2 ML VIAL 25 MCG IV PUSH ×4 (08:52→09:19)
[2022-09-26] MEDS: oxyCODONE HCL (*CRX) 5 MG TAB IR PO (10:05)
== END 2022-09-26 10:47 | disposition home or self-care (01) ==
PROVIDERS: PCP Family Medicine Adolescent Medicine; Visit Provider Orthopaedic Surgery
PROC: (CPT 29870; principal; 2022-09-26 07:30)
DX: M23.332 Other meniscus derangements, other medial meniscus, left knee (principal); M22.42 Chondromalacia patellae, left knee; M65.862 Other synovitis and tenosynovitis, left lower leg; E11.9 Type 2 diabetes mellitus without complications; K21.9 Gastro-esophageal reflux disease without esophagitis; E66.9 Obesity, unspecified; Z68.30 Body mass index [BMI] 30.0-30.9, adult; Z79.84 Long term (current) use of oral hypoglycemic drugs
CPT/HCPCS: 29881; 36415; 80048; 82948; 93005; A9270; J0690; J2250; J2405; J2704; J3010; J7120

== ENCOUNTER 2025-02-27 07:58 | Outpatient (NON) | payer OTHER, SELFPAY ==
--- NOTE | 2025-02-27 | S_PTH ---
PATIENT: Trish Carter LOC: [facility] U#:[id number] AGE/SX: 49/F ROOM: RE02/27/[address]: Ant Lo MD : 1975 BED: DIS: 02/27/2025 SPEC #: [id number] RECD: 02/28/25 08:43 STATUS: OLGA REQ #: [id number] KRIS: 02/27/25 00:[address]: Ant Lo DEPT: [facility] Surgical RECD BY: Yamilex Huerta ENTERED: 02/28/25 08:44 SP TYPE: Surgical OTHR DR: Chris Henao MD Tissues: A - Colon Polypectomy Procedures: Hematoxylin and Eosin Stain Gross and Microscopic Level 4
== END 2025-02-27 07:59 | disposition home or self-care (01) ==
PROVIDERS: PCP Family Medicine Adolescent Medicine; Visit Provider Internal Medicine Gastroenterology
DX: Z12.11 Encounter for screening for malignant neoplasm of colon (principal); N85.8 Other specified noninflammatory disorders of uterus
CPT/HCPCS: 88305

== ENCOUNTER 2025-02-27 08:45 | Day surgery (SDC) | payer OTHER, SELFPAY ==
[2024-11-28 09:49] VITALS: BMI 32.3
[2025-02-14 14:40] VITALS: BMI 34.1
--- OUTSIDE RECORDS SUMMARY | 2025-02-27 08:54 | XMS_ITS | Clinical Summary ---
Author Organization [facility] Address [address] [place] [address] Care Team Providers Care Facility Worker Name Role Phone Chris Henao MD Primary Care Provider [phone] Social History Tobacco Use Types Packs/Day Years Used Date Smoking Tobacco: Never Assessed Comments Unknown Sex and Gender Information Value Date Recorded Sex Assigned at Not on file Legal Sex Female 4:04 PM CDT Gender Identity Not on file Sexual Orientation Not on file Plan of Treatment Health Maintenance Due Date Last Done Comments Cervical Cancer Screening Pa p Smear (Age 30 to 64) Every 3 Years 1973 Colorectal Cancer Screening Colonoscopy (10 Years) 1973 Annual Physical 1976 Hepatitis C 1991 DTaP, Tdap and Td Vaccines ( 1 - Tdap) 1992 Hepatitis B Vaccines (1 of 3 - 19+ 3-dose series) 1992 Cervical Cancer Screening Pa p with HPV Testing (Age 30 to 64) Every 5 Years 2003 Cervical Cancer Screening with HPV 2003 Mammogram Screening 2013 Pneumococcal Vaccine: 50+ Ye ars (1 of 1 - PCV) 2023 Zoster Vaccines (1 of 2) 2023 COVID-19 Vaccine ( - 2023-2 5 season) 2024 Meningococcal B Vaccine Aged Out No l onger eligible based on patient's age to complete this topic Meningococcal Vaccine Aged Out No mark christina eligible based on patient's age to complete this topic RSV Immunizations Under 20 Months Aged Out No longer eligible based on patient's age to complete this topic Care Teams Facility Worker Relationship Specialty Start Date End Date Chris Henao MD [phone] [id number] PCP - General 05/04/13
[2025-02-27 09:05] VITALS: BMI 34.9
[2025-02-27 09:13] VITALS: BP 149/91; PULSE 61; RESP 18; TEMP 37.1; O2SAT 100
--- NOTE | 2025-02-27 09:50 | WPDANESEPPF ---
Anes - Initial Pre Proc Eval Procedure: Operation Date: 02/27/25 10:30 Proposed Procedures p Screening Colonoscopy - Ant Lo MD Date/Time: 02/27/25 09:50 Surgeon: Ant Lo MD Pre Op Diagnosis: Screening for malignant neoplasm of colon. Patient Data Age: 49 Gender: F Height: 1.65 m Weight: 95.4 kg Last Vital Signs Temp 98.8 F 02/27/25 09:13 Pulse 61 02/27/25 09:13 Resp 18 02/27/25 09:13 BP 149/91 H 02/27/25 09:13 Pulse Ox 100 02/27/25 09:13 O2 Del Method Room Air 02/27/25 09:13 Allergies Allergy/AdvReac Type Severity Reaction Status Date / Time No Known Allergies Allergy Unknown Verified 02/27/25 09:04 Home Medications ?Medication ?Instructions ?Recorded ?Confirmed ?Type docusate sodium 100 mg capsule 100 mg PO BID 02/23/20 02/27/25 History (Colace) omeprazole magnesium 20 mg 40 mg PO DAILY 02/23/20 02/27/25 History tablet,delayed release (Prilosec OTC) sennosides 8.6 mg tablet (Skylar-elvi) 17.2 mg PO BID 02/19/22 02/27/25 History atorvastatin 20 mg tablet 20 mg PO DAILY #90 tabs 11/23/24 02/23/25 Rx meloxicam 15 mg tablet See Rx Instructions .Route 11/23/24 02/27/25 Rx .COMPLEX #90 tabs metformin 500 mg tablet,extended 500 mg PO DAILY #90 tabs 11/23/24 02/27/25 Rx release 24 hr nitrofurantoin 100 mg PO Q12H 5 days #10 caps 02/23/25 02/27/25 Rx monohydrate/macrocrystals 100 mg capsule (Macrobid) semaglutide 0.25 mg or 0.5 mg (2 0.5 mg (0.736 mL) subcut WEEKLY #3 02/23/25 02/27/25 Rx mg/3 mL) subcutaneous pen injector mL (Ozempic) Patient hx anesthesia problems: none Family hx anesthesia problems: none Results Review: All pre-operative results and documents have been reviewed as part of the pre-operative evaluation. [facility] Past Medical History Medical History Medial meniscus tear Left knee DJD Left knee pain delivery delivered 1991,1994 GERD (gastroesophageal reflux disease) Lateral meniscus tear Chondromalacia, right knee Pes anserine bursitis Diabetes Most recent hemoglobin A1c is 7.1 Right knee pain Surgical History Surgical History H/O arthroscopic knee surgery H/O tubal ligation Family History Family History Unknown Diabetes mellitus Arthritis Sibling Arthritis Diabetes mellitus Heart disease Hypertension Mother Arthritis Diabetes mellitus Sibling Diabetes mellitus Hypertension Social History Social History Smoking status: Never smoker Second hand tobacco smoke exposure: No Alcohol intake: current Drinks per week: 1 Alcohol use details: rarely Substance use type: does not use Other substance usage details: ONCE EVERY 2 MONTHS Last use: 09/30/2021 Living arrangements: with family Additional living arrangements comments: SON Occupation/Education: occupation 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[employer] Gender identity (if verbalized by the patient): Female Sexual Orientation (if Verbalized by the Patient): Straight or Heterosexual Spiritual care concerns: No Agree to blood products: Yes Anes - Eval Final PreProcedure Day of Procedure 02/27/25 09:50 Heart: regular rate and rhythm Lungs: clear to auscultation Airway: Mallampati scale class II Neurological: alert and oriented Last oral intake: >/= 8 hours ASA classification: II Anesthetic plan: proceed Anesthesia type and monitoring: monitored anesthesia care Results Review: All pre-operative results and documents have been reviewed as part of the pre-operative evaluation. Informed Consent: The patient's anesthetic plan and its attendant risks and benefits were discussed with the patient/family/POA. Questions were solicited and answers provided to the satisfaction of the patient/family/POA.
[2025-02-27] MEDS: LACTATED RINGERS 1,000 ML 150 ML IV CONT (10:18)
--- NOTE | 2025-02-27 11:00 | PM.IMHP ---
H&P: HPI History of Present Illness Date/Time: 02/27/25 11:00 Chief Complaint: Screening colonoscopy Narrative: This is the patient's first colonoscopy. There are no GI symptoms and there is no family history of colorectal cancer. Review of Systems Review of Systems: All systems reviewed & are unremarkable except as noted in HPI and below PMFSH Past Medical History Medical History Medial meniscus tear Left knee DJD Left knee pain delivery delivered 1991,1994 GERD (gastroesophageal reflux disease) Lateral meniscus tear Chondromalacia, right knee Pes anserine bursitis Diabetes Most recent hemoglobin A1c is 7.1 Right knee pain Surgical History Surgical History H/O arthroscopic knee surgery H/O tubal ligation Family History Family History Unknown Diabetes mellitus Arthritis Sibling Arthritis Diabetes mellitus Heart disease Hypertension Mother Arthritis Diabetes mellitus Sibling Diabetes mellitus Hypertension Social History Social History Smoking status: Never smoker Second hand tobacco smoke exposure: No Alcohol intake: current Drinks per week: 1 Alcohol use details: rarely Substance use type: does not use Other substance usage details: ONCE EVERY 2 MONTHS Last use: 09/30/2021 Living arrangements: with family Additional living arrangements comments: SON Occupation/Education: occupation 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[employer] Gender identity (if verbalized by the patient): Female Sexual Orientation (if Verbalized by the Patient): Straight or Heterosexual Spiritual care concerns: No Agree to blood products: Yes Meds Home Medications and Allergies Home Medications ?Medication ?Instructions ?Recorded ?Confirmed ?Type docusate sodium 100 mg capsule 100 mg PO BID 02/23/20 02/27/25 History (Colace) omeprazole magnesium 20 mg 40 mg PO DAILY 02/23/20 02/27/25 History tablet,delayed release (Prilosec OTC) sennosides 8.6 mg tablet (Skylar-elvi) 17.2 mg PO BID 02/19/22 02/27/25 History atorvastatin 20 mg tablet 20 mg PO DAILY #90 tabs 11/23/24 02/23/25 Rx meloxicam 15 mg tablet See Rx Instructions .Route 11/23/24 02/27/25 Rx .COMPLEX #90 tabs metformin 500 mg tablet,extended 500 mg PO DAILY #90 tabs 11/23/24 02/27/25 Rx release 24 hr nitrofurantoin 100 mg PO Q12H 5 days #10 caps 02/23/25 02/27/25 Rx monohydrate/macrocrystals 100 mg capsule (Macrobid) semaglutide 0.25 mg or 0.5 mg (2 0.5 mg (0.736 mL) subcut WEEKLY #3 02/23/25 02/27/25 Rx mg/3 mL) subcutaneous pen injector mL (Ozempic) Allergies Allergy/AdvReac Type Severity Reaction Status Date / Time No Known Allergies Allergy Unknown Verified 02/27/25 09:04 Vital Signs Vital Signs - 24 hr 02/27/25 09:13 Temperature 98.8 F Pulse Rate 61 Respiratory Rate 18 Blood Pressure 149/91 H Pulse Oximetry 100 Oxygen Delivery Room Air Exam Const: General: cooperative and healthy appearing Resp: Effort & Inspection: normal respiratory effort and able to speak in complete sentences Auscultation: clear to auscultation bilaterally Cardio: Rate: regular rate Rhythm: regular rhythm GI: Inspection: normal to inspection GI Palp: No No hepatosplenomegaly present Auscultation: normal bowel sounds Rectal Exam: deferred Skin: General skin exam: normal color Psych: Appearance: grossly normal Mental Status: mental status grossly normal Assessment and Plan Assessment and plan (1) Colon cancer screening: Code(s): Z12.11 - Encounter for screening for malignant neoplasm of colon Status: Acute Assessment and Plan: The patient is deemed a good candidate for the procedure. Consent signed. Will proceed.
--- NOTE | 2025-02-27 11:15 | WPDANESPN ---
Anes - Prog Note Post-Op Date/Time: 02/27/25 11:15 Vital Signs: Last Vital Signs Temp 98.8 F 02/27/25 09:13 Pulse 61 02/27/25 09:13 Resp 18 02/27/25 09:13 BP 149/91 H 02/27/25 09:13 Pulse Ox 100 02/27/25 09:13 O2 Del Method Room Air 02/27/25 09:13 Pain Score (VAS): no Patient Feedback: Patient satisfied with anesthetic care.
[2025-02-27 11:28] VITALS: BP 117/70; PULSE 69; RESP 14; O2SAT 100
[2025-02-27 11:38] VITALS: BP 116/75; PULSE 66; RESP 14; O2SAT 100
[2025-02-27 11:48] VITALS: BP 132/80; PULSE 62; RESP 14; O2SAT 100
== END 2025-02-27 11:51 | disposition home or self-care (01) ==
PROVIDERS: PCP Family Medicine Adolescent Medicine; Visit Provider Internal Medicine Gastroenterology
PROC: 0DJD8ZZ Inspection of Lower Intestinal Tract, Via Natural or Artificial Opening Endoscopic (ICD-10-PCS; CPT 45378; principal; 2025-02-27 10:30)
DX: Z12.11 Encounter for screening for malignant neoplasm of colon (principal); D12.3 Benign neoplasm of transverse colon
CPT/HCPCS: 45385